=== PATIENT | female | born 1995 | race Caucasian/White ===

== ENCOUNTER 2019-03-09 09:19 | Emergency (ER) | payer BC, OTHER ==
[~2019-03-09] VITALS: Ht 162.6 cm; Wt 59.0 kg
[2019-03-09] MEDS ORDERED: KETOROLAC 30 MG/ML VIAL IVP STA (09:52)
[2019-03-09] MEDS ORDERED: diphenhydrAMINE 50 MG/ML INJ (BENADRYL) IVP STA (09:52)
[2019-03-09] MEDS ORDERED: NS IV 1000 ML 1,000 ML IV STA (09:52)
[2019-03-09] MEDS ORDERED: PROCHLORPERAZINE 10 MG/2ML INJ (COMPAZINE) IV STA (09:52)
--- NOTE | 2019-03-09 10:49 | ED Headache ---
General Chief Complaint: Head/Cervical Problems Stated Complaint: HEADACHE Nursing Triage Note: headache x 1 week. Has taken excedrin at home for pain. Went to urgent care yesterday and got a shot of toradol. Currently rating headache at 8/10 Nursing Sepsis Screen: No Definite Risk History of Present Illness Date Seen by Provider: March 09, 2019 Time Seen by Provider: 09:40 Initial Comments This is a 24 y/o f who presents to the ED for evaluation of headache. Reports history of migraines. 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 Has not been seen by a neurologist. Has never been on prophylactic medication. Takes daily Excedrin Migraine. States that she has a constant headache, daily at 4/10. Has intermittent flares/increased pain that require clinic/ED evaluation. States increased headache for the past 1 week. Seen in clinic yesterday. Given IM Toradol, with minimal improvement. Slept well last night but persistent increased headache today. Frontal, 8/10, no aggravating/alleviating factors. + nausea, +photophobia. Allergies and Home Medications Allergies Coded Allergies: No Known Drug Allergies (Unverified , 03/09/19) Patient Home Medication List Home Medication List Reviewed: Yes Review of Systems Review of Systems Constitutional: No chills, No fever, No weakness Eyes: Denies Blindness, Denies Blurred Vision, Denies Decreased Acuity, Denies Photophobia Respiratory: No cough, No short of breath, No wheezing Cardiovascular: No chest pain, No edema, No palpitations Gastrointestinal: No abdominal pain, No diarrhea; nausea; No vomiting Skin: No rash Psychiatric/Neurological: Headache; Denies Numbness, Denies Tingling, Denies Weakness All Other Systems Reviewed Negative Unless Noted: Yes (Negative excepted noted.) Past Ihjesgt-Zgyxoh-Dmdokt Hx Patient Social History Alcohol Use: Denies Use Recreational Drug Use: No Smoking Status: Never a Smoker 2nd Hand Smoke Exposure: No Recent Foreign Travel: No Contact w/Someone Who Travel: No Recent Infectious Disease Expo: No Recent Hopitalizations: No Physical Abuse: No Sexual Abuse: No Mistreated: No Fear: No Seasonal Allergies Seasonal Allergies: No Past Medical History Surgeries: Yes Tubal Ligation Respiratory: No Cardiac: No Neurological: Yes (head injury) 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 oz. 58.940627az; BMI Method:Stated General Appearance: WD/WN, no apparent distress HEENT: PERRL/EOMI Neck: non-tender, full range of motion, normal inspection Cardiovascular: regular rate, rhythm, no gallop, no JVD Respiratory: normal breath sounds, no respiratory distress, no accessory muscle use Gastrointestinal: non tender, soft Extremities: normal range of motion Psychiatric: alert, oriented x 3 Crainal Nerves: normal hearing, normal speech, PERRL, other (CN II-XII intact bilateral) Coordination/Gait: normal finger to nose, normal gait Motor/Sensory: no motor deficit, no sensory deficit Skin: normal color, warm/dry Progress/Results/Core Measures Results/Orders Lab Results Laboratory Tests Test 03/09/19 09:30 Range/Units Urine Test NEGATIVE NEGATIVE My Orders Orders - SHANNON BOYD DO Hcg,Qualitative Urine (03/09/19 09:40) Prochlorperazine Injection (Compazine In (03/09/19 09:52) Ketorolac Injection (Toradol Injection) (03/09/19 09:52) Diphenhydramine Injection (Benadryl Inje (03/09/19 09:52) Ns Iv 1000 Ml (Sodium Chloride 0.9%) (03/09/19 09:52) Vital Signs/I&O 03/09/19 09:30 Temp 97.9 Pulse 60 Resp 16 B/P (MAP) 111/68 (82) Pulse Ox 99 Blood Pressure Mean: 82 Progress Progress Note : Time: 10:46 Progress Note Headache resolved. Advised follow up with Neurology for evaluation for prophylactic medication. ER return precautions given. Pt verbalized understanding. All questions answered. Departure Impression Primary Impression: Headache Disposition: 01 HOME, SELF-CARE Condition: Improved Departure-Patient Inst. Decision time for Depature: 10:47 Referrals: SELF,WALTER NÚÑEZ (PCP/Family) Primary Care Physician Patient Instructions: Migraine Headache (DC) Add. Discharge Instructions: Please read the attached handout. Please go home and sleep. Please get follow up with a Neurologist for continued evaluation for migraine prophylaxis. All discharge instructions reviewed with patient and/or family. Voiced understanding. Work/School Note: Family Work Note Patient Received Medical Care In the Emergency Department On: March 09, 2019 Patient Will Be Able to Return to Work/School On: March 10, 2019 Patient Restrictions: Pt brought in by significant other. SHANNON BOYD DO March 09, 2019 10:49
[2019-03-09 11:23] VITALS: BP 108/59
== END 2019-03-09 11:23 | disposition home or self-care (01) ==
LOC: ER FS 09:21
DX: R51 Headache (principal); Z87.820 Personal history of traumatic brain injury; Z98.51 Tubal ligation status; Z86.69 Personal history of other diseases of the nervous system and sense organs
CPT/HCPCS: 84703; 99282

== ENCOUNTER 2019-03-28 20:41 | Emergency (ER) | payer BC ==
[~2019-03-28] VITALS: Ht 162.6 cm; Wt 63.5 kg
--- OUTSIDE RECORDS SUMMARY | 2019-03-28 20:46 | XMS REPORT | Continuity of Care Document ---
Author Organization Unknown Address Unknown Allergies There is no data. Medications There is no data. Problems There is no data. Procedures There is no data. Results There is no data. Encounters ACCT No. Visit Date/Time Discharge Status Pt. Type Provider Facility Loc./Unit Complaint [id number] 03/17/2019 16:00:00 03/17/2019 23:59:59 C[facility] Outpatient SELF, WALTER Bustillo [facility]
[2019-03-28] MEDS ORDERED: DEXAMETHASONE 4 MG TAB (DECADRON) PO STA (20:59)
[2019-03-28] MEDS ORDERED: diphenhydrAMINE 25 MG TAB (BENADRYL) PO STA (20:59)
--- NOTE | 2019-03-28 20:59 | ED General ---
General Chief Complaint: Allergic Reaction Stated Complaint: POSSIBLE ALLERGIC REACTION/ALL OVER HIVES History of Present Illness Date Seen by Provider: March 28, 2019 Time Seen by Provider: 20:52 Allergies and Home Medications Allergies Coded Allergies: No Known Drug Allergies (Unverified , 03/09/19) Patient Home Medication List Home Medication List Reviewed: Yes Review of Systems Review of Systems Constitutional: no symptoms reported EENTM: no symptoms reported Respiratory: no symptoms reported Cardiovascular: no symptoms reported Gastrointestinal: no symptoms reported Genitourinary: no symptoms reported Musculoskeletal: no symptoms reported Skin: see HPI Psychiatric/Neurological: No Symptoms Reported Hematologic/Lymphatic: No Symptoms Reported Immunological/Allergic: see HPI Past Tmqvowg-Pmekcy-Gsmxie Hx Past Med/Social Hx: Reviewed Nursing Past Med/Soc Hx Patient Social History 2nd Hand Smoke Exposure: No Recent Foreign Travel: No Contact w/Someone Who Travel: No Recent Hopitalizations: No Seasonal Allergies Seasonal Allergies: No Past Medical History Surgeries: Yes Tubal Ligation Respiratory: No Cardiac: No Neurological: Yes (head injury) 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 oz. 58.807909nc; BMI Method:Stated General Appearance: No Apparent Distress HEENT: Normal ENT Inspection, Pharynx Normal, Moist Mucous Membranes Neck: Supple Respiratory: Lungs Clear, No Respiratory Distress; No Stridor, No Wheezing Cardiovascular: Regular Rate, Rhythm, Normal Peripheral Pulses Gastrointestinal: Non Tender, Soft Neurologic/Psychiatric: Alert, Normal Mood/Affect; No Abnormal Gait Skin: Warm/Dry, Other (on the chest there are scattered faintly raised urticarial lesions, negative Nikolsky sign) Progress/Results/Core Measures Suspected Sepsis SIRS Temperature: Pulse: Respiratory Rate: Blood Pressure / Mean: Results/Orders My Orders Orders - SUZY CASTAÑEDA DO Dexamethasone Tablet (Decadron Tablet) (03/28/19 20:59) Diphenhydramine Tablet (Benadryl Tablet) (03/28/19 20:59) Dexamethasone Injection (Decadron Inject (03/28/19 21:15) Dexamethasone Injection (Decadron Inject (03/28/19 21:01) Medications Given in ED Current Medications Medications Dose Ordered Sig/Rosario Route Start Time Stop Time Status Last Admin Dose Admin Dexamethasone Sodium Phosphate 10 mg STK-MED ONCE .ROUTE 03/28/19 21:01 03/28/19 21:05 DC 03/28/19 21:08 10 MG Vital Signs/I&O 03/28/19 20:50 Temp 99.5 Pulse 60 Resp 18 B/P (MAP) 120/82 (95) Pulse Ox 100 O2 Delivery Room Air Capillary Refill : Progress Note : Progress Note Patient presents with pruritus and some urticaria on the chest after taking first dose of topiramate today for headaches. No signs of airway involvement, no hypotension. This is been going on for several hours and I doubt that it will progress further. We will give a dose of dexamethasone here and a dose of Benadryl. Patient will take Benadryl as needed. She will stop taking the new medication and I have added this to her list of allergies. She will follow-up with her prescribing physician. Return precautions reviewed. Departure Impression Primary Impression: Allergic reaction caused by a drug Qualified Codes: T78.40XA - Allergy, unspecified, initial encounter Disposition: 01 HOME, SELF-CARE Condition: Stable Departure-Patient Inst. Referrals: SELF,WALTER NÚÑEZ (PCP/Family) Primary Care Physician Patient Instructions: Drug Allergy SUZY CASTAÑEDA DO March 28, 2019 20:59
[2019-03-28] MEDS ORDERED: DEXAMETHASONE 10 MG/ML (DECADRON) 1 ML VIAL ONE (21:01)
[2019-03-28] MEDS ORDERED: DEXAMETHASONE 10 MG/ML (DECADRON) 1 ML VIAL PO ONE (21:15)
[2019-03-28 21:30] VITALS: BP 115/72
== END 2019-03-28 21:30 | disposition home or self-care (01) ==
LOC: EDUNIT# 20:41 → ER FS 20:43
DX: L50.9 Urticaria, unspecified (principal); T50.905A Adverse effect of unspecified drugs, medicaments and biological substances, initial encounter; G43.909 Migraine, unspecified, not intractable, without status migrainosus; Z98.51 Tubal ligation status
CPT/HCPCS: 99283

== ENCOUNTER 2020-04-24 23:17 | Emergency (ER) | payer BC ==
--- OUTSIDE RECORDS SUMMARY | 2020-04-24 23:30 | XMS REPORT | Continuity of Care Document ---
Author Organization Unknown Address Unknown Phone Unavailable Allergies Active Description Code Type Severity Reaction Onset Reported/Identified Relationship to Patient Clinical Status Yes No Known Drug Allergies [id number] Drug Allergy Unknown N/A 03/09/2019 Yes topiramate [id number] Drug Allerg y Mild Hives 03/28/2019 Medications There is no data. Problems Date Dx Coded Attending Type Code Diagnosis Diagnosed By 03/09/2019 SHANNON BOYD DO Ot R5 1 HEADACHE 03/09/2019 SHANNON BOYD DO Ot Z86.69 PERSONAL HISTORY OF DIS OF THE NERVOUS S 03/09/2019 SHANNON BOYD DO T Ot Z87.820 PERSONAL HISTORY OF TRAUMATIC BRAIN INJU 03/09/2019 SHANNON BOYD DO T Ot Z98.51 TUBAL LIGATION STATUS 03/11/2019 SHANNON BOYD DO Ot R5 1 HEADACHE 03/11/2019 SHANNON BOYD DO Ot Z86.69 PERSONAL HISTORY OF DIS OF THE NERVOUS S 03/11/2019 SHANNON BOYD DO Ot Z87.820 PERSONAL HISTORY OF TRAUMATIC BRAIN INJU 03/11/2019 SHANNON BOYD DO T Ot Z98.51 TUBAL LIGATION STATUS 03/28/2019 SUZY CASTAÑEDA DO Ot G43.909 MIGRAINE, UNSP, NOT INTRACTABLE, WITHOUT 03/28/2019 SUZY CASTAÑEDA DO Ot L50. 9 URTICARIA, UNSPECIFIED 03/28/2019 SUZY CASTAÑEDA DO Ot T50.905A ADVERSE EFFECT OF UNSP DRUG/MEDS/BIOL [place]OLA 03/28/2019 SUZY CASTAÑEDA DO Ot T78.40XA ALLERGY, UNSPECIFIED, INITIAL ENCOUNTER 03/28/2019 SUZY CASTAÑEDA DO Ot Z98. 51 TUBAL LIGATION STATUS 03/30/2019 SUZY CASTAÑEDA DO Ot G43.909 MIGRAINE, UNSP, NOT INTRACTABLE, WITHOUT 03/30/2019 SUZY CASTAÑEDA DO Ot L50. 9 URTICARIA, UNSPECIFIED 03/30/2019 SUZY CASTAÑEDA DO Ot T50.905A ADVERSE EFFECT OF UNSP DRUG/MEDS/BIOL [place]OLA 03/30/2019 SUZY CASTAÑEDA DO Ot T78.40XA ALLERGY, UNSPECIFIED, INITIAL ENCOUNTER 03/30/2019 SUZY CASTAÑEDA DO Ot Z98. 51 TUBAL LIGATION STATUS Procedures There is no data. Results Test Result Range Urine beta human chorionic gonadotropin (hCG) measurement - 03/09/19 09:30 Urine beta human chorionic gonadotropin (hCG) measurem ent NEGATIVE NEGATIVE HCG, QUANTITATIVE - 04/26/19 11:21 HCG, TOTAL, QN <2 mIU/mL NRG Encounters ACCT No. Visit Date/Time Discharge Status Pt. Type Provider Facility Loc./Unit Complaint [id number] 04/05/2020 07:00:00 04/05/2020 23:59: 59 [facility] Outpatient SELF, WALTER Will [facility] [id number] 04/26/2019 11:15:00 Document Registration [id number] 03/28/2019 20:43:00 21:30:00 DIS Emergency SUZY CASTAÑEDA DO Via [facility] ER FS POSSIBLE ALLERGIC REACT ION/ALL OVER HIVES [id number] 03/09/2019 09:21:00 11:23:00 DIS Emergency SHANNON BOYD DO Via [facility] ER FS HEADACHE
[2020-04-24] MEDS ORDERED: methylPREDNISolone 80 MG/ML (DEPO MEDROL) VIAL IM STA (23:55)
[2020-04-24] MEDS ORDERED: DEXAMETHASONE 10 MG/ML (DECADRON) 1 ML VIAL IM STA (23:55)
[2020-04-24] MEDS ORDERED: AZITHROMYCIN 250 MG TAB (ZITHROMAX) PO STA (23:55)
--- NOTE | 2020-04-25 00:02 | ED Cough/URI ---
General Stated Complaint: COUGTH,SOA,CONGESTION Source: patient History of Present Illness Date Seen by Provider: Apr 24, 2020 Time Seen by Provider: 23:36 Initial Comments 25 yo female presents with over 2 weeks of cough and congestion. She has coughed to the point that she is losing her voice. She has shortness of breath and coughing up some colored sputum. She denies any history of asthma or smoking. She has had subjective fever and chills. She has not seen anyone in the last 2 weeks with her symptoms. Her boyfriend has similar symptoms for the last week. Allergies and Home Medications Allergies Coded Allergies: topiramate (Verified Allergy, Mild, Hives, 03/28/19) Home Medications Azithromycin 250 Mg Tablet, 250 MG PO DAILY Prescribed by: AIMEE PEARCE on 04/25/20 0003 Patient Home Medication List Home Medication List Reviewed: Yes Review of Systems Review of Systems Constitutional: chills, fever (subjective), malaise EENTM: hoarseness, nose congestion, throat pain; No epistaxis Respiratory: cough; No hemoptysis; phlegm, short of breath; No stridor Cardiovascular: chest pain (tightness) Gastrointestinal: no symptoms reported Genitourinary: no symptoms reported Musculoskeletal: muscle pain (generalized body aches) Skin: No rash Psychiatric/Neurological: Headache Hematologic/Lymphatic: No Symptoms Reported Immunological/Allergic: no symptoms reported Past Hrtgisi-Vrpscb-Ggrstn Hx Past Med/Social Hx: Reviewed Nursing Past Med/Soc Hx Patient Social History 2nd Hand Smoke Exposure: No Recent Hopitalizations: No Seasonal Allergies Seasonal Allergies: No Past Medical History Surgeries: Yes Tubal Ligation Respiratory: No Cardiac: No Neurological: Yes (head injury) 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 0oz. 63.886051hb; BMI Method:Stated General Appearance: WD/WN, mild distress HEENT: PERRL/EOMI, normal ENT inspection, TMs normal, pharyngeal erythema; No tonsillar exudate Neck: non-tender, full range of motion, supple, normal inspection Respiratory: chest non-tender, lungs clear, normal breath sounds, no respiratory distress, no accessory muscle use Cardiovascular: normal peripheral pulses, regular rate, rhythm Gastrointestinal: normal bowel sounds, soft, no pulsatile mass Extremities: normal range of motion, non-tender, normal inspection, normal capillary refill Neurologic/Psychiatric: decal applier II-XII nml as tested, no motor/sensory deficits, alert, normal mood/affect, oriented x 3 Skin: normal color, warm/dry Progress/Results/Core Measures Suspected Sepsis SIRS Temperature: Pulse: Respiratory Rate: Laboratory Tests 04/24/20 23:49: White Blood Count 10.3 Blood Pressure / Mean: Laboratory Tests 04/24/20 23:49: Creatinine 0.68, Platelet Count 254, Total Bilirubin 0.2 Results/Orders Lab Results Laboratory Tests Test 04/24/20 23:44 04/24/20 23:49 Range/Units White Blood Count 10.3 4.3-11.0 10^3/uL Red Blood Count 4.50 4.35-5.85 10^6/uL Hemoglobin 10.7 L 11.5-16.0 G/DL Hematocrit 34 L 35-52 % Mean Corpuscular Volume 76 L 80-99 FL Mean Corpuscular Hemoglobin 24 L 25-34 PG Mean Corpuscular Hemoglobin Concent 31 L 32-36 G/DL Red Cell Distribution Width 14.9 H 10.0-14.5 % Platelet Count 254 130-400 10^3/uL Mean Platelet Volume 11.1 H 7.4-10.4 FL Neutrophils (%) (Auto) 57 42-75 % Lymphocytes (%) (Auto) 32 12-44 % Monocytes (%) (Auto) 8 0-12 % Eosinophils (%) (Auto) 2 0-10 % Basophils (%) (Auto) 0 0-10 % Neutrophils # (Auto) 5.9 1.8-7.8 X 10^3 Lymphocytes # (Auto) 3.3 1.0-4.0 X 10^3 Monocytes # (Auto) 0.8 0.0-1.0 X 10^3 Eosinophils # (Auto) 0.2 0.0-0.3 10^3/uL Basophils # (Auto) 0.0 0.0-0.1 10^3/uL Sodium Level 142 135-145 MMOL/L Potassium Level 3.7 3.6-5.0 MMOL/L Chloride Level 106 98-107 MMOL/L Carbon Dioxide Level 24 21-32 MMOL/L Anion Gap 12 5-14 MMOL/L Blood Urea Nitrogen 9 7-18 MG/DL Creatinine 0.68 0.60-1.30 MG/DL Estimat Glomerular Filtration Rate > 60 BUN/Creatinine Ratio 13 Glucose Level 93 70-105 MG/DL Calcium Level 9.0 8.5-10.1 MG/DL Corrected Calcium 9.1 8.5-10.1 MG/DL Total Bilirubin 0.2 0.1-1.0 MG/DL Aspartate Amino Transf (AST/SGOT) 15 5-34 U/L Alanine Aminotransferase (ALT/SGPT) 10 0-55 U/L Alkaline Phosphatase 77 40-136 U/L Total Protein 7.2 6.4-8.2 GM/DL Albumin 3.9 3.2-4.5 GM/DL My Orders Orders - AIMEE PEARCE MD Monitor-Rhythm Ecg Trace Only (04/24/20 23:41) Cbc With Automated Diff (04/24/20 23:41) Comprehensive Metabolic Panel (04/24/20 23:41) Chest 1 View Ap/Pa Only (04/24/20 23:41) Coronavirus Sars-Cov-2 So 2018 (04/24/20 23:41) Dexamethasone Injection (Decadron Inject (04/24/20 23:55) Methylprednisolone Acetate Inj (Depo-Med (04/24/20 23:55) Azithromycin Tablet (Zithromax Tablet) (04/24/20 23:55) Vital Signs/I&O 04/24/20 04/24/20 23:45 23:45 Temp 36.1 Pulse 86 Resp 18 B/P (MAP) 122/58 (79) Pulse Ox 99 O2 Delivery Room Air Room Air Capillary Refill : Progress Note #1: Progress Note Obtain basic lab and chest x-ray as well as send a COVID-19 swab. On my review of her 1 view chest x-ray she does not have any acute infiltrate. We will try treating with steroids and Zithromax for a Z-Mike. Awaiting blood work. Progress Note #2: Progress Note labs show mild anemia with low MVC so likely iron deficient. Chemistry without acute significant abnormality. CXR clear of infiltrate or effusion. Continue z pack at home and mucinex OTC for loosening congestion and cough. Follow up with clinic and self quarantine in the meantime until 2 weeks or symptoms resolve Diagnostic Imaging Diagonstic Imaging: Xray Plain Films/CT/US/NM/MRI: chest Comments On my review of her 1 view chest x-ray she does not have any acute infiltrate or effusion. Reviewed: Reviewed by Me Departure Impression Primary Impression: Acute viral syndrome Additional Impressions: Upper respiratory infection with cough and congestion Laryngitis Disposition: HOME, SELF-CARE Condition: Stable Departure-Patient Inst. Decision time for Depature: 00:16 Referrals: WALTER DHALIWAL MD (PCP/Family) Primary Care Physician Patient Instructions: Coronavirus Disease 2019 (COVID-19) (DC), Laryngitis (DC), Viral Syndrome (DC), Viral Upper Respiratory Infection, Adult (DC) Add. Discharge Instructions: Take the full course of antibiotics to treat for possible bacterial infection. The steroids from tonight will help with cough, congestion and inflammation. Take Mucinex to help loosen cough and congestion. Stay well hydrated and get plenty of rest. Follow up with clinic for continued concerns. Self Quarantine and avoid being around other people for the next 2 weeks. Your swab for COVID-19 will take a few days to come back. Scripts Azithromycin (Azithromycin) 250 Mg Tablet 250 MG PO DAILY for 4 Days, #4 TAB 0 Refills Prov: AIMEE PEARCE MD 04/25/20 Work/School Note: Work Release Form Date Seen in the Emergency Department: Apr 25, 2020 Return to Work: May 09, 2020 Restrictions: No Restrictions AIMEE PEARCE MD Apr 25, 2020 00:02
[2020-04-25] MEDS ORDERED: AZIT250T12 PO (00:03)
[2020-04-25 00:10] LABS: HEMATOCRIT 34 % (35-52); HEMOGLOBIN 10.7 G/DL (11.5-16.0); MEAN CORPUSCULAR HEMOGLOBIN 24 PG (25-34); MEAN CORPUSCULAR HGB CONC 31 G/DL (32-36); MEAN CORPUSCULAR VOLUME 76 FL (80-99); MEAN PLATELET VOLUME 11.1 FL (7.4-10.4); PLATELET COUNT 254 10^3/uL (130-400); RED CELL DISTRIBUTION WIDTH 14.9 % (10.0-14.5); WHITE BLOOD COUNT 10.3 10^3/uL (4.3-11.0)
[2020-04-25 00:11] LABS: BASOPHILS % (AUTO) 0 % (0-10); EOSINOPHILS # (AUTO) 0.2 10^3/uL (0.0-0.3); EOSINOPHILS % (AUTO) 2 % (0-10); LYMPHOCYTES # (AUTO) 3.3 X 10^3 (1.0-4.0); LYMPHOCYTES % (AUTO) 32 % (12-44); MONOCYTES # (AUTO) 0.8 X 10^3 (0.0-1.0); MONOCYTES % (AUTO) 8 % (0-12); NEUTROPHILS # (AUTO) 5.9 X 10^3 (1.8-7.8); NEUTROPHILS % (AUTO) 57 % (42-75)
[2020-04-25 00:26] LABS: CARBON DIOXIDE 24 MMOL/L (21-32); CHLORIDE 106 MMOL/L (98-107); POTASSIUM 3.7 MMOL/L (3.6-5.0); SODIUM 142 MMOL/L (135-145)
[2020-04-25 00:27] LABS: ALANINE AMINOTRANSFERASE 10 U/L (0-55); ALBUMIN 3.9 GM/DL (3.2-4.5); ALKALINE PHOSPHATASE 77 U/L (40-136); BILIRUBIN,TOTAL 0.2 MG/DL (0.1-1.0); BUN/CREATININE RATIO 13; CREATININE SERUM 0.68 MG/DL (0.60-1.30); GFR ESTIMATED > 60; GLUCOSE 93 MG/DL (70-105); TOTAL PROTEIN 7.2 GM/DL (6.4-8.2)
[2020-04-25 00:40] VITALS: BP 122/58
--- NOTE | 2020-04-25 07:43 | Diagnostic Imaging Report ---
EXAM: CHEST 1 VIEW AP/PA ONLY INDICATION: Cough. Shortness of air. COMPARISON: None. FINDINGS: Normal heart size and pulmonary vascularity. No dense consolidation, pleural effusion or pneumothorax. No acute osseous findings. IMPRESSION: No acute cardiopulmonary findings. Dictated by: Dictated on workstation # [id number]
== END 2020-04-25 00:40 | disposition home or self-care (01) ==
LOC: EDUNIT# 23:17 → ER FS 23:19
DX: J06.9 Acute upper respiratory infection, unspecified (principal); J04.0 Acute laryngitis; B97.89 Other viral agents as the cause of diseases classified elsewhere; Z88.8 Allergy status to other drugs, medicaments and biological substances; Z87.820 Personal history of traumatic brain injury; Z20.828 Contact with and (suspected) exposure to other viral communicable diseases
CPT/HCPCS: 36415; 71045; 80053; 85025; 93041; 99283; U0002; 87635

== ENCOUNTER 2021-11-02 18:10 | Emergency (ER) | payer SELFPAY ==
[~2021-11-02] VITALS: Ht 160 cm; Wt 72.7 kg
[~2021-11-02 18:10] MED LIST: AZIT250T12 PO
[2021-11-02] MEDS ORDERED: KETOROLAC 30 MG/ML VIAL IVP STA (18:29)
[2021-11-02] MEDS ORDERED: NS IV 1000 ML 1,000 ML IV SCH (18:30)
[2021-11-02] MEDS ORDERED: ONDANSETRON 4 MG/2 ML (SDV) Z0FRAN IV ONE (18:30)
[2021-11-02] MEDS ORDERED: ACETAMINOPHEN 325 MG TABLET PO ONE (18:30)
--- NOTE | 2021-11-02 18:41 | ED General ---
General Chief Complaint: Cough/Cold/Flu Symptoms Stated Complaint: FEVER; HEADACHE; NAUSEA Nursing Triage Note: Patient has ambualted to ER with cc of chills, headache, nasuea, fever, and shortness of breath for the last 2 days. She reports that last week she tested positive for strep and is taking antibiotics, but 2 days she developed these symptoms. Source of Information: Patient History of Present Illness Date Seen by Provider: Nov 02, 2021 Time Seen by Provider: 18:13 Initial Comments 26-year-old female presenting with complaints of chills, headache, nausea, fever, shortness of breath for the last several days. She stated that she was seen and tested for strep earlier this week. She started on cefdinir Thursday. She had vomiting and diarrhea on Thursday but none since then. She continues to be nauseated but has not thrown up today. She denies pain with urination. She has had nasal congestion runny nose. She has sinus pressure. She reports pleuritic pain with deep breaths. She denies any pain or burning with urination. She states her last menstrual period was on October 23. She has not taken anything for fever or headache today because she was unsure if she could mix the medicine with the antibiotic she was taking. She feels dizzy and lightheaded especially with standing Timing/Duration: 5-6 Days Severity: Moderate Modifying Factors: worse with Movement Associated Systoms: Chest Pain (with deep breaths ), Cough (mild intermittent); No Diaphoresis; Fever/Chills, Headaches, Loss of Appetite, Malaise, Nausea/Vomiting (no vomiting since Thursday); No Rash, No Seizure; Shortness of Air (feels short of breath and taking short shallow breaths); No Syncope; Weakness (generalized) Allergies and Home Medications Allergies Coded Allergies: topiramate (Verified Allergy, Mild, Hives, 03/28/19) Patient Home Medication List Home Medication List Reviewed: Yes Ondansetron (Ondansetron Odt) 4 Mg Tab.rapdis, 4 MG PO Q6H PRN for NAUSEA/VOMITING Prescribed by: AIMEE PEARCE on 11/02/212052 Discontinued Medications Azithromycin (Azithromycin) 250 Mg Tablet, 250 MG PO DAILY Prescribed by: AIMEE PEARCE on 04/25/20 0003 Last Action: Discontinued Review of Systems Review of Systems Constitutional: chills, dizziness (with standing), fever, malaise, weakness (generalized) EENTM: see HPI, nose congestion, throat pain Respiratory: cough, short of breath; No stridor, No wheezing Cardiovascular: chest pain (with breathing today), palpitations Gastrointestinal: abdominal pain (diffuse aching); No diarrhea (none since Thursday); nausea; No vomiting (none since Thursday) Genitourinary: No dysuria Musculoskeletal: muscle pain (generalized body aches) Skin: No rash Psychiatric/Neurological: Anxiety, Headache Hematologic/Lymphatic: Denies Blood Clots Past Buftxqi-Kaxwas-Hcremi Hx Patient Social History Tobacco Use?: No Use of E-Cig and/or Vaping dev: No Substance use?: No Alcohol Use?: No Pt feels they are or have been: No Seasonal Allergies Seasonal Allergies: No Past Medical History Surgeries: Yes Tubal Ligation Respiratory: No Cardiac: No Neurological: Yes (head injury) Headaches /Migraines [employer]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 0oz. [id number]; 62.00 BMI Method:Stated General Appearance: Anxious, Mild Distress HEENT: PERRL/EOMI, Moist Mucous Membranes, Pharyngeal Erythema; No Photophobia, No Tonsillar Exudate; Other (Erythematous TMs bilaterally.) Neck: Full Range of Motion, Supple, Lymphadenopathy (L), Lymphadenopathy (R) Respiratory: Chest Non Tender, Lungs Clear, Normal Breath Sounds, No Accessory Muscle Use, No Respiratory Distress, Other (Taking shallow rapid breaths) Cardiovascular: Normal Peripheral Pulses, Tachycardia Gastrointestinal: Normal Bowel Sounds, No Pulsatile Mass, Soft, Tenderness (Complains of mild diffuse aching) Rectal: Deferred Extremity: Normal Capillary Refill, Normal Inspection, No Pedal Edema Neurologic/Psychiatric: Alert, 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, 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 Skin: Warm/Dry Focused Exam Lactate Level 11/02/21 18:35: Lactic Acid Level 1.99 Lactic Acid Level Laboratory Tests Test 11/02/21 18:35 Lactic Acid Level 1.99 MMOL/L (0.50-2.00) Progress/Results/Core Measures Suspected Sepsis SIRS Temperature: Pulse: 133 Respiratory Rate: 26 Laboratory Tests 11/02/21 18:35: White Blood Count 11.7H Blood Pressure 143 /90 Mean: 107 11/02/21 18:35: Lactic Acid Level 1.99 Laboratory Tests 11/02/21 18:35: Creatinine 0.81, INR Comment 1.0, Platelet Count 281, Total Bilirubin 0.2 Results/Orders Lab Results Laboratory Tests Test 11/02/21 18:30 11/02/21 18:35 11/02/21 19:55 Range/Units Influenza Type A Antigen NEGATIVE NEGATIVE Influenza Type B Antigen NEGATIVE NEGATIVE White Blood Count 11.7 H 4.3-11.0 10^3/uL Red Blood Count 5.03 3.80-5.11 10^6/uL Hemoglobin 12.7 11.5-16.0 g/dL Hematocrit 39 35-52 % Mean Corpuscular Volume 78 L 80-99 fL Mean Corpuscular Hemoglobin 25 25-34 pg Mean Corpuscular Hemoglobin Concent 33 32-36 g/dL Red Cell Distribution Width 13.9 10.0-14.5 % Platelet Count 281 130-400 10^3/uL Mean Platelet Volume 10.7 9.0-12.2 fL Immature Granulocyte % (Auto) 0 % Neutrophils (%) (Auto) 88 H 42-75 % Lymphocytes (%) (Auto) 4 L 12-44 % Monocytes (%) (Auto) 7 0-12 % Eosinophils (%) (Auto) 0 0-10 % Basophils (%) (Auto) 0 0-10 % Neutrophils # (Auto) 10.3 H 1.8-7.8 X 10^3 Lymphocytes # (Auto) 0.5 L 1.0-4.0 X 10^3 Monocytes # (Auto) 0.8 0.0-1.0 X 10^3 Eosinophils # (Auto) 0.1 0.0-0.3 10^3/uL Basophils # (Auto) 0.0 0.0-0.1 10^3/uL Immature Granulocyte # (Auto) 0.0 0.0-0.1 10^3/uL Neutrophils % (Manual) 90 % Lymphocytes % (Manual) 6 % Monocytes % (Manual) 4 % Prothrombin Time 13.3 12.2-14.7 SEC INR Comment 1.0 0.8-1.4 Activated Partial Thromboplast Time 31 24-35 SEC D-Dimer 0.30 0.00-0.49 UG/ML Sodium Level 137 135-145 MMOL/L Potassium Level 3.6 3.6-5.0 MMOL/L Chloride Level 102 98-107 MMOL/L Carbon Dioxide Level 22 21-32 MMOL/L Anion Gap 13 5-14 MMOL/L Blood Urea Nitrogen 12 7-18 MG/DL Creatinine 0.81 0.60-1.30 MG/DL Estimat Glomerular Filtration Rate 85 BUN/Creatinine Ratio 15 Glucose Level 108 H 70-105 MG/DL Lactic Acid Level 1.99 0.50-2.00 MMOL/L Calcium Level 9.4 8.5-10.1 MG/DL Corrected Calcium 9.1 8.5-10.1 MG/DL Total Bilirubin 0.2 0.1-1.0 MG/DL Aspartate Amino Transf (AST/SGOT) 16 5-34 U/L Alanine Aminotransferase (ALT/SGPT) 13 0-55 U/L Alkaline Phosphatase 82 40-136 U/L Troponin I < 0.30 <0.30 NG/ML C-Reactive Protein 0.39 <0.50 MG/DL Total Protein 8.2 6.4-8.2 GM/DL Albumin 4.4 3.2-4.5 GM/DL Lipase 23 8-78 U/L Serum Test, Qualitative NEGATIVE NEGATIVE Urine Color YELLOW Urine Clarity SLIGHTLY CLOUDY Urine pH 8.0 5-9 Urine Specific Marshall 1.020 1.016-1.022 Urine Protein NEGATIVE NEGATIVE Urine Glucose (UA) NEGATIVE NEGATIVE Urine Ketones NEGATIVE NEGATIVE Urine Nitrite NEGATIVE NEGATIVE Urine Bilirubin NEGATIVE NEGATIVE Urine Urobilinogen 0.2 < = 1.0 MG/DL Urine Leukocyte Esterase NEGATIVE NEGATIVE Urine RBC (Auto) NEGATIVE NEGATIVE Urine RBC 0-2 /HPF Urine WBC 0-2 /HPF Urine Squamous Epithelial Cells 25-50 H /HPF Urine Crystals NONE /LPF Urine Bacteria TRACE /HPF Urine Casts NONE /LPF Urine Mucus LARGE H /LPF Urine Other SPERM PRESENT /HPF Urine Culture Indicated NO My Orders Orders - AIMEE PEARCE MD Monitor-Rhythm Ecg Trace Only (11/02/21 18:29) Ed Iv/Invasive Line Start (11/02/21 18:29) Cbc With Automated Diff (11/02/21 18:29) Comprehensive Metabolic Panel (11/02/21 18:29) Crp Fs (11/02/21 18:29) Troponin I Fs (11/02/21 18:29) Protime With Inr (11/02/21 18:29) Partial Thromboplastin Time (11/02/21 18:29) Ekg Tracing (11/02/21 18:29) Ns Iv 1000 Ml (Sodium Chloride 0.9%) (11/02/21 18:30) Acetaminophen Tablet/Caplet (Tylenol T (11/02/21 18:30) Ondansetron Injection (Zofran Injectio (11/02/21 18:30) Blood Culture (11/02/21 18:29) Influenza A & B Antigens (11/02/21 18:29) Covid 19 Inhouse Test (11/02/21 18:29) Hcg,Qualitative Serum (11/02/21 18:29) Ua Culture If Indicated (11/02/21 18:29) Ct Head/Sinuses Wo (11/02/21 18:29) Fibrin Degradation Products (11/02/21 18:29) Lactic Acid Analyzer (11/02/21 18:29) Isolation Central Supply Req (11/02/21 18:29) Lipase (11/02/21 18:29) Ketorolac Injection (Toradol Injection) (11/02/21 18:29) Chest 1 View Ap/Pa Only (11/02/21 18:35) Manual Differential (11/02/21 18:35) Ns Iv 1000 Ml (Sodium Chloride 0.9%) (11/02/21 20:28) Dexamethasone Injection (Decadron Inje (11/02/21 20:28) Penicillin G Benzathine Inject (Bicillin (11/02/21 20:28) Ondansetron Injection (Zofran Injectio (11/02/21 20:28) Rx-Ondansetron Po (Rx-Zofran Po) (11/02/21 21:00) Medications Given in ED Current Medications Medications Dose Ordered Sig/Rosario Route Start Time Stop Time Status Last Admin Dose Admin Acetaminophen 650 mg ONCE ONCE PO 11/02/21 18:30 11/02/21 18:36 DC 11/02/21 18:41 650 MG Ondansetron HCl 4 mg ONCE ONCE IV 11/02/21 18:30 12 18:36 DC 11/02/21 18:41 4 MG Vital Signs/I&O 11/02/21 18:21 Temp 38.4 Pulse 133 Resp 26 B/P (MAP) 143/90 (107) Pulse Ox 98 O2 Delivery Room Air Capillary Refill : Blood Pressure Mean: 107 Progress Note #1: Progress Note Patient would be under investigation for Covid. Will obtain swabs to check for flu and Covid. Chest x-ray for her shallow breathing. Obtain a CT scan of her head and sinuses. Give IV fluids for hydration. check basic labs as well as blood cultures Progress Note #2: Progress Note CBC shows mild elevation of the white blood cell count of 11.7 without left shift. The chemistry panel did not show any acute significant abnormality. The lactic acid was negative at 1.99. The influenza swab was negative. Electrocardiogram showed sinus tachycardia with no acute ischemic changes. Progress Note #3: Progress Note Chest x-ray does not show any acute process. The CT head and sinuses shows some mucosal thickening in the ethmoid sinuses. There is no acute intracranial process. The D-dimer is negative for screening in regards to PE. Her heart rate is still over 100 bpm so we will repeat an additional liter of normal saline for hydration. Progress Note #4: Progress Note Reviewed results with patient and her friend. Advised that the blood work did not show any acute significant normality. Her urine did not show infection. Her CT scan showed some mild mucosal thickening but no acute sinusitis. The chest x-ray did not show any acute process or infiltrate. Patient was feeling a little better but still complaining of headache and body aches. Heart rate was still just a little over 100 at 105 bpm. Advised that we would repeat nausea medicine to help with her upset stomach. Repeat another liter of normal saline for IV fluids and hydration. Give a dose of Decadron for steroid to help with body aches since she is already had Tylenol and Toradol. Give Bicillin LA 1,200,000 units IM for a boost on her strep throat treatment. Plan on discharge after these treatments and will send her with a Zofran take-home pack as well as send a prescription to the pharmacy to continue. Encourage fluids and rest. We will send a note for work in case she is still not feeling better by Thursday. ECG Initial ECG Impression Date: Nov 02, 2021 Initial ECG Impression Time: 18:36 Initial ECG Rate: 105 Initial ECG Rhythm: S.Tach Initial ECG Comparisson: No Previous ECG Available Comment Sinus tachycardia with a heart rate of 105 bpm. GA interval [address] elevation. QT interval 315 ms with a QTc interval 417 ms. There is no prior tracing available for comparison. Diagnostic Imaging Diagonstic Imaging: Xray Plain Films/CT/US/NM/MRI: chest [facility] [place] [place] NAME: MELANI NICHOLSON [facility] REC#: [id number] PT STATUS: REG ER : 1995 PHYSICIAN: AIMEE PEARCE MD ADMIT DATE: 11/02/21/ER FS Draft Date of Exam:11/02/21 CHEST 1 VIEW AP/PA ONLY EXAMINATION: Chest radiograph, portable AP view. DATE: 11/02/2021 6:59 PM. INDICATION: 26-year-old female, shortness of breath. COMPARISON: April 24, 2020. FINDINGS: Heart size and mediastinal contours are unremarkable. There is no identified pneumothorax. There is no large pleural effusion. There is no identified focal airspace consolidation. IMPRESSION: No identified acute cardiopulmonary abnormality. Dictated on workstation # [id number] Dict: 11/02/211910 Trans: 11/02/211917 [facility] [id number] Interpreted by: JULIANN GUO MD Electronically signed by: Reviewed: Reviewed by Me Diagonstic Imaging: CT Plain Films/CT/US/NM/MRI: facial bones, head Comments [facility] [place] [place] NAME: MELANI NICHOLSON [facility] REC#: [id number] PT STATUS: REG ER : 1995 PHYSICIAN: AIMEE PEARCE MD ADMIT DATE: 11/02/21/ER FS Draft Date of Exam:11/02/21 CT HEAD/SINUSES WO PROCEDURE: CT head without contrast and CT sinuses with contrast. TECHNIQUE: Routine noncontrast CT images were obtained through the head and sinuses. Coronal reformats of the sinuses were also performed and reviewed. Auto Exposure Controls were utilized during the CT exam to meet ALARA standards for radiation dose reduction. DATE: November 02, 2021. INDICATION: 26-year-old female, headache, dizziness, sinus pressure. COMPARISON: None. FINDINGS: The bilateral frontal sinuses are well-aerated. There is nonspecific opacification in the left posterior ethmoidal air cell. There is mucosal thickening of the left sphenoid sinus. The right sphenoid sinus and right ethmoidal air cells are well aerated. Maxillary sinuses are well aerated. There is no air-fluid level in the paranasal sinuses or bubbly areas of internal lucency. The bony nasal septum is deviated to the right of midline. Mastoid air cells and middle ears are well-aerated, bilaterally. There is pneumatization of the petrous apices. The ventricles and additional CSF spaces are normal in size and configuration for patient age. There is no identified abnormal extra-axial fluid collection. There is no evidence of acute intracranial hemorrhage. There is no mass effect or midline shift. IMPRESSION: 1. Nonspecific opacification in the left posterior ethmoid cell with mucosal thickening in the left sphenoid sinus. No findings to specifically suggest acute sinusitis although correlation clinically is recommended. 2. No identified acute intracranial abnormality. Dictated on workstation # [id number] Dict: 11/02/211908 Trans: 11/02/211924 [facility] [id number] Interpreted by: JULIANN GUO MD Electronically signed by: Reviewed: Reviewed by Me Departure Impression Primary Impression: Person under investigation for COVID-19 Additional Impressions: Fever and chills Headache Qualified Codes: R51.9 - Headache, unspecified Pleuritic chest pain Dehydration Disposition: 01 HOME, SELF-CARE Condition: Improved Departure-Patient Inst. Decision time for Depature: 21:00 Referrals: NO,LOCAL PHYSICIAN (PCP) Primary Care Physician WALTER DHALIWAL MD [facility] Patient Instructions: Pleuritic Chest Pain ED, Dehydration, Adult ED, Fever, Adult ED, COVID-19 Overview Add. Discharge Instructions: Use the nausea medicine to help keep your stomach settled so you can eat and drink better. Make sure that you are drinking plenty of fluids and staying better hydrated. Until you have the results of your Covid test from [facility] you should stay quarantined and isolated. If the test comes back positive you should stay quarantined for 10 days. All discharge instructions reviewed with patient and/or family. Voiced understanding. Scripts Ondansetron (Ondansetron Odt) 4 Mg Tab.rapdis 4 MG PO Q6H PRN for NAUSEA/VOMITING for 5 Days, #20 TAB 0 Refills Prov: AIMEE PEARCE MD 11/02/21 Work/School Note: Work Release Form Date Seen in the Emergency Department: Nov 02, 2021 Return to Work: Nov 05, 2021 Restrictions: Return-No Fever (24hrs) Other Restrictions Listed Below: If Covid test negative may return to work 11/05, if pos then return 1/ AIMEE PEARCE MD Nov 02, 2021 18:41
[2021-11-02 18:42] LABS: HEMOGLOBIN 12.7 g/dL (11.5-16.0); MEAN CORPUSCULAR HEMOGLOBIN 25 pg (25-34); WHITE BLOOD COUNT 11.7 10^3/uL (4.3-11.0)
[2021-11-02 18:43] LABS: BASOPHILS % (AUTO) 0 % (0-10); EOSINOPHILS # (AUTO) 0.1 10^3/uL (0.0-0.3); EOSINOPHILS % (AUTO) 0 % (0-10); HEMATOCRIT 39 % (35-52); LYMPHOCYTES # (AUTO) 0.5 X 10^3 (1.0-4.0); LYMPHOCYTES % (AUTO) 4 % (12-44); MEAN CORPUSCULAR HGB CONC 33 g/dL (32-36); MEAN CORPUSCULAR VOLUME 78 fL (80-99); MEAN PLATELET VOLUME 10.7 fL (9.0-12.2); MONOCYTES # (AUTO) 0.8 X 10^3 (0.0-1.0); MONOCYTES % (AUTO) 7 % (0-12); NEUTROPHILS # (AUTO) 10.3 X 10^3 (1.8-7.8); NEUTROPHILS % (AUTO) 88 % (42-75); PLATELET COUNT 281 10^3/uL (130-400)
[2021-11-02 19:03] LABS: BILIRUBIN,TOTAL 0.2 MG/DL (0.1-1.0); BUN/CREATININE RATIO 15; CALCIUM 9.4 MG/DL (8.5-10.1); CARBON DIOXIDE 22 MMOL/L (21-32); CHLORIDE 102 MMOL/L (98-107); CREATININE SERUM 0.81 MG/DL (0.60-1.30); GFR ESTIMATED 85; GLUCOSE 108 MG/DL (70-105); POTASSIUM 3.6 MMOL/L (3.6-5.0); SODIUM 137 MMOL/L (135-145)
[2021-11-02 19:04] LABS: ALANINE AMINOTRANSFERASE 13 U/L (0-55); ALBUMIN 4.4 GM/DL (3.2-4.5); ALKALINE PHOSPHATASE 82 U/L (40-136); TOTAL PROTEIN 8.2 GM/DL (6.4-8.2)
[2021-11-02 19:08] LABS: LYMPHOCYTES % (MANUAL) 6 %; MONOCYTES % (MANUAL) 4 %; NEUTROPHILS % (MANUAL) 90 %
[2021-11-02 19:09] LABS: PROTHROMBIN TIME PATIENT 13.3 SEC (12.2-14.7)
--- NOTE | 2021-11-02 19:18 | Diagnostic Imaging Report ---
EXAMINATION: Chest radiograph, portable AP view. DATE: 11/02/2021 6:59 PM. INDICATION: 26-year-old female, shortness of breath. COMPARISON: April 24, 2020. FINDINGS: Heart size and mediastinal contours are unremarkable. There is no identified pneumothorax. There is no large pleural effusion. There is no identified focal airspace consolidation. IMPRESSION: No identified acute cardiopulmonary abnormality. Dictated by: Dictated on workstation # [id number]
--- NOTE | 2021-11-02 19:26 | Diagnostic Imaging Report ---
PROCEDURE: CT head without contrast and CT sinuses with contrast. TECHNIQUE: Routine noncontrast CT images were obtained through the head and sinuses. Coronal reformats of the sinuses were also performed and reviewed. Auto Exposure Controls were utilized during the CT exam to meet ALARA standards for radiation dose reduction. DATE: November 02, 2021. INDICATION: 26-year-old female, headache, dizziness, sinus pressure. COMPARISON: None. FINDINGS: The bilateral frontal sinuses are well-aerated. There is nonspecific opacification in the left posterior ethmoidal air cell. There is mucosal thickening of the left sphenoid sinus. The right sphenoid sinus and right ethmoidal air cells are well aerated. Maxillary sinuses are well aerated. There is no air-fluid level in the paranasal sinuses or bubbly areas of internal lucency. The bony nasal septum is deviated to the right of midline. Mastoid air cells and middle ears are well-aerated, bilaterally. There is pneumatization of the petrous apices. The ventricles and additional CSF spaces are normal in size and configuration for patient age. There is no identified abnormal extra-axial fluid collection. There is no evidence of acute intracranial hemorrhage. There is no mass effect or midline shift. IMPRESSION: 1. Nonspecific opacification in the left posterior ethmoid cell with mucosal thickening in the left sphenoid sinus. No findings to specifically suggest acute sinusitis although correlation clinically is recommended. 2. No identified acute intracranial abnormality. Dictated by: Dictated on workstation # [id number]
[2021-11-02 20:04] LABS: BILIRUBIN,URINE NEGATIVE (NEGATIVE); CLARITY,URINE SLIGHTLY CLOUDY; COLOR,URINE YELLOW; GLUCOSE, URINE (UA) NEGATIVE (NEGATIVE); KETONES,URINE NEGATIVE (NEGATIVE); LEUKOCYTE ESTERASE ,URINE NEGATIVE (NEGATIVE); NITRITE,URINE NEGATIVE (NEGATIVE); PROTEIN,URINE NEGATIVE (NEGATIVE)
[2021-11-02 20:05] LABS: BACTERIA,URINE TRACE /HPF; RBC,URINE 0-2 /HPF; SQUAMOUS EPITHELIAL CELL,UR 25-50 /HPF; URINE OTHER SPERM PRESENT /HPF; WBC,URINE 0-2 /HPF
[2021-11-02] MEDS ORDERED: ONDANSETRON 4 MG/2 ML (SDV) Z0FRAN IVP STA (20:28)
[2021-11-02] MEDS ORDERED: NS IV 1000 ML 1,000 ML IV STA (20:28)
[2021-11-02] MEDS ORDERED: PEN G BENZ (BICILLIN LA) 1.2 M UN/2 ML SYR IM STA (20:28)
[2021-11-02] MEDS ORDERED: ONDA4TAB11 PO (20:53)
[2021-11-02] MEDS ORDERED: RX-ONDANSETRON 4 MG ODT (ZOFRAN) PPK #4 PO PRN (21:00)
[2021-11-02 21:15] VITALS: BP 113/62
== END 2021-11-02 21:15 | disposition home or self-care (01) ==
LOC: EDUNIT# 18:10 → ER FS 18:14
DX: R50.9 Fever, unspecified (principal); R51.9 Headache, unspecified; R07.2 Precordial pain; E86.0 Dehydration; Z20.822 Contact with and (suspected) exposure to COVID-19; Z79.2 Long term (current) use of antibiotics
CPT/HCPCS: 36415; 70450; 70486; 71045; 80053; 81000; 83605; 83690; 84484; 84703; 85007; 85027; 85379; 85610; 85730; 86141; 87040; 87636; 87804; 93005

== ENCOUNTER 2023-08-27 21:47 | Emergency (ER) | payer SELFPAY ==
[~2023-08-27] VITALS: Ht 162.5 cm; Wt 79.3 kg
[~2023-08-27 21:47] MED LIST changes: +ONDA4TAB11 PO
--- NOTE | 2023-08-27 21:56 | ED General ---
General Stated Complaint: NAUSEA,THOAT PAIN,BODY ACHES History of Present Illness Date Seen by Provider: Aug 27, 2023 Time Seen by Provider: 21:56 Initial Comments 28 yr F is here with c/o sore throat, body aches, for the past couple of days. Pt states she gets strep throat every fall and thinks she has it now. Denies fever and chills, cough, SOB, diarrhea. No known sick contacts. Allergies and Home Medications Allergies Coded Allergies: topiramate (Verified Allergy, Mild, Hives, 03/28/19) Patient Home Medication List Home Medication List Reviewed: Yes Ondansetron (Ondansetron Odt) 4 Mg Tab.rapdis, 4 MG PO Q6H PRN for NAUSEA/VOMITING Prescribed by: AIMEE PEARCE on 11/02/212052 Review of Systems Review of Systems Constitutional: see HPI, other (Body aches) EENTM: throat pain Respiratory: no symptoms reported Cardiovascular: no symptoms reported Gastrointestinal: no symptoms reported Past Scpgckn-Edrqup-Eqqobf Hx Seasonal Allergies Seasonal Allergies: No Past Medical History Surgeries: Yes Tubal Ligation Respiratory: No Cardiac: No Neurological: Yes (head injury) 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 0oz. 63.737629ex; 28.00 BMI Method:Stated General Appearance: No Apparent Distress, WD/WN HEENT: PERRL/EOMI, Pharyngeal Erythema (Mild), Tonsillar Enlargement (Bilateral, smooth, no exudates) Neck: Full Range of Motion, Normal Inspection, Non Tender, Supple Respiratory: Lungs Clear Cardiovascular: Regular Rate, Rhythm Gastrointestinal: Non Tender, Soft Neurologic/Psychiatric: Alert, Oriented x3 Progress/Results/Core Measures Suspected Sepsis SIRS Temperature: Pulse: Respiratory Rate: Blood Pressure / Mean: Results/Orders Lab Results Laboratory Tests Test 08/27/23 21:50 Range/Units Influenza Type A (RT-PCR) Not Detected Not Detecte Influenza Type B (RT-PCR) Not Detected Not Detecte SARS-CoV-2 RNA (RT-PCR) Not Detected Not Detecte Group A Streptococcus Screen Not Detected NotDetected My Orders Orders - DARREN MERCADO MD Influenza A And B By Pcr (08/27/23 21:56) Covid 19 Inhouse Test (08/27/23 21:56) Rapid Strep A Screen (08/27/23 21:56) Vital Signs/I&O 08/27/23 21:50 Temp 37.0 Pulse 94 Resp 16 B/P (MAP) 124/101 (109) Pulse Ox 98 O2 Delivery Room Air Capillary Refill : Progress Note : Progress Note 1. SORE THROAT, VIRAL: - COVID test/ Rapid Flu test: negative - Rapid strep test: negative - Toradol im/Dexamethasone im STAT in ER - Follow up with PCP as needed - Take Ibuoprofen for pain an d soft diet advised. Departure Impression Primary Impression: Viral pharyngitis Disposition: HOME, SELF-CARE Condition: Stable Departure-Patient Inst. Referrals: NO,LOCAL PHYSICIAN (PCP/Family) Primary Care Physician Patient Instructions: Viral Pharyngitis, Sore Throat, Adult ED Add. Discharge Instructions: - Follow up with PCP as needed - Take Ibuoprofen for pain an d soft diet advised. Work/School Note: Work Release Form Date Seen in the Emergency Department: Aug 27, 2023 Return to Work: Aug 31, 2023 DARREN MERCADO MD Aug 27, 2023 21:56
[2023-08-27] MEDS ORDERED: dexAMETHasone INJ 10 MG/ML 1 ML VIAL IM STA (23:10)
[2023-08-27] MEDS ORDERED: KETOROLAC INJ 30 MG/ML VIAL ONE (23:14)
[2023-08-27] MEDS ORDERED: dexAMETHasone INJ 10 MG/ML 1 ML VIAL ONE (23:14)
[2023-08-27] MEDS ORDERED: KETOROLAC INJ 30 MG/ML VIAL IM ONE (23:15)
[2023-08-27 23:18] VITALS: BP 120/92
== END 2023-08-27 23:19 | disposition home or self-care (01) ==
LOC: EDUNIT# 21:47 → ER FS 21:50
DX: J02.8 Acute pharyngitis due to other specified organisms (principal); B97.89 Other viral agents as the cause of diseases classified elsewhere
CPT/HCPCS: 87430; 87636; 96372; 99284